=== PATIENT | female | born 1940 | race Caucasian/White ===

== ENCOUNTER 2019-05-15 06:41 | Inpatient (IN) ==
--- NOTE | 2019-05-03 08:15 | EKG Report ---
Test Performed on : 05/03/2019 07:39:29 AM Test Reason : PAT Blood Pressure : / mmHG Vent. Rate : 068 BPM Atrial Rate : 068 BPM P-R Int : 192 ms QRS Dur : 154 ms QT Int : 434 ms P-R-T Axes : 064 107 026 degrees QTc Int : 461 ms Normal sinus rhythm. Right bundle branch block Abnormal ECG No previous ECGs available Confirmed by Faith TARIQ, Jefferson Farrell ([id number]) on 05/04/2019 8:58:36 AM
[2019-05-03 08:26] LABS: URINE SOURCE CLEAN CATCH
[2019-05-03 08:43] LABS: BASO# 0.02 X1000 (0.0-0.2); BASO% 0.3 % (0.0-0.8); EOS# 0.09 X1000 (0.0-0.7); EOS% 1.4 % (0.0-10.0); HEMATOCRIT 39.9 % (37.0-47.0); HEMOGLOBIN 12.4 g/dL (12.0-16.0); LYMPH% 40.3 % (20.5-51.1); MCH 29.6 PG (27-31); MCHC 31.1 g/dL (33-37); MCV 95.2 FL (81-99); MONO# 0.76 X1000 (0.11-0.59); MONO% 12.2 % (1.7-9.3); MPV 9.5 FL (7.4-10.4); NEUT# 2.84 X1000 (1.4-6.5); NEUT% 45.8 % (42.2-75.2); PLT 235 X1000 (130-400); RBC 4.19 XMIL (4.2-5.4); RDW 13.7 % (11.5-14.5); WBC 6.21 X1000 (4.8-10.8)
[2019-05-03 08:45] LABS: BILIRUBIN URINE NEGATIVE (NEGATIVE); BLOOD URINE NEGATIVE (NEGATIVE); COLOR YELLOW; GLUCOSE URINE NEGATIVE (NEGATIVE); KETONE URINE NEGATIVE (NEGATIVE); LEUKOCYTES URINE NEGATIVE (NEGATIVE); NITRITE URINE NEGATIVE (NEGATIVE); PROTEIN URINE NEGATIVE (NEGATIVE); SP GRAVITY URINE 1.015; TURBIDITY URINE CLEAR (CLEAR); UR EPITHELIAL CELLS <10 /HPF (<10); URINE BACTERIA 3+ /HPF; URINE RBC <10 /HPF (<10); URINE WBC <10 /HPF (<10); UROBILINOGEN URINE NORMAL (NORMAL)
[2019-05-03 08:50] LABS: HEMOGLOBIN A1C 5.9 % (4.8-6.0); INR 0.98; PROTIME 13.1 Seconds (11.0-16.0)
[2019-05-03 08:51] LABS: PTT 24.7 Seconds (22.3-41.8)
[2019-05-03 09:03] LABS: ALBUMIN 4.3 g/dL (3.5-5.0); CALCIUM 9.9 mg/dL (8.8-10.2); CREATININE 1.4 mg/dL (0.5-0.9); POTASSIUM 4.1 mmol/L (3.5-5.1)
[2019-05-15] MEDS ORDERED: ROBINUL ONE (07:03)
[2019-05-15] MEDS ORDERED: DIPRIVAN 1% ONE (07:03)
[2019-05-15] MEDS ORDERED: XYLOCAINE-MPF 2% ONE (07:03)
[2019-05-15] MEDS ORDERED: VERSED ONE (07:03)
[2019-05-15] MEDS ORDERED: VANCOMYCIN ONE (07:22)
[2019-05-15] MEDS ORDERED: DURAMORPH ONE (07:22)
[2019-05-15] MEDS ORDERED: TORADOL ONE ×2 (07:22→08:33)
[2019-05-15] MEDS ORDERED: EXPAREL 1.3% ONE (07:24)
[2019-05-15] MEDS ORDERED: SODIUM CHLORIDE 0.9% ONE (07:24)
[2019-05-15] MEDS ORDERED: MARCAINE 0.25% PF ONE (07:24)
[2019-05-15] MEDS ORDERED: COLACE ONE (07:25)
[2019-05-15] MEDS ORDERED: REGLAN ONE (07:26)
[2019-05-15] MEDS ORDERED: PEPCID ONE (07:26)
[2019-05-15] MEDS ORDERED: LYRICA ONE (07:26)
[2019-05-15] MEDS ORDERED: KEFZOL 1 GM/D5W 1 GM/50 ML IVPB ONE (07:26)
[2019-05-15] MEDS ORDERED: CELEBREX ONE (07:26)
[2019-05-15] MEDS ORDERED: LR 1,000 ML ONE (07:26)
[2019-05-15] MEDS: CYKLOKAPRON 1,000 MG/NS 2,000 MG/200 ML IVPB ONE ×2 (08:30→09:29)
[2019-05-15] MEDS ORDERED: OFIRMEV 1000 MG/ISOTONIC SOLN 1,000 MG/100 ML BOTTLE ONE (08:33)
[2019-05-15] MEDS ORDERED: DECADRON ONE (08:33)
[2019-05-15 09:27] LABS: URINE SOURCE CATH
[2019-05-15 09:32] LABS: BILIRUBIN URINE NEGATIVE (NEGATIVE); BLOOD URINE NEGATIVE (NEGATIVE); COLOR YELLOW; GLUCOSE URINE NEGATIVE (NEGATIVE); KETONE URINE NEGATIVE (NEGATIVE); LEUKOCYTES URINE NEGATIVE (NEGATIVE); NITRITE URINE NEGATIVE (NEGATIVE); PH URINE 5.5; PROTEIN URINE NEGATIVE (NEGATIVE); SP GRAVITY URINE 1.008; TURBIDITY URINE CLEAR (CLEAR); UR EPITHELIAL CELLS <10 /HPF (<10); URINE BACTERIA NEGATIVE /HPF; URINE RBC <10 /HPF (<10); URINE WBC <10 /HPF (<10); UROBILINOGEN URINE NORMAL (NORMAL)
[2019-05-15] MEDS ORDERED: NS 1,000 ML ONE (10:29)
--- NOTE | 2019-05-15 10:51 | OPERATIVE NOTE ---
PROCEDURE DATE: 05/15/2019 PREOPERATIVE DIAGNOSIS: Left knee degenerative joint disease. POSTOPERATIVE DIAGNOSIS: Left knee degenerative joint disease. PROCEDURE PERFORMED: Left total knee arthroplasty using [facility], size 6 femoral component, size 5 tibial base plate, a 16 mm articular insert, and a 35 mm patellar component. SURGEON: Alen Boyle M.D. CLOTHES WRINGER: Neel Young. ANESTHESIA: Spinal. COMPLICATIONS: None. BLOOD LOSS: Minimal. TOURNIQUET TIME: One hour. DESCRIPTION OF PROCEDURE: The patient was brought to the operative suite and placed in the supine position. After successful administration of general anesthesia, a well-padded tourniquet was placed on the left proximal thigh. The left lower extremity was prepped and draped in the usual sterile fashion. Leg was exsanguinated. Tourniquet insufflated to 300 torr. A longitudinal incision was made, beginning at the superior pole of patella, and extended distally to tibia tuberosity, dissected sharply through skin and subcutaneous tissue, and then a medial arthrotomy was made, and the medial capsule was elevated off the medial tibial plateau. The ACL, PCL, medial meniscus, and lateral meniscus were excised. A drill was entered in the center of the distal femur. Intramedullary guide was placed. Distal cutting block was pinned into place. Distal cut was made with oscillating saw. Attention was directed to the tibia. A drill was entered in the center of the tibia. Intramedullary guide was placed. Alignment was checked with drop zaki, referencing off the anterior cortex of the tibia and the second ray of the foot, and taking 4 mm off the low side of the tibia, which in this case was medially. The tibial cutting block was pinned into place. The articular surface of the tibial plateau was removed with the oscillating saw. Extension gap was checked and balanced at 16 mm. Flexion gap was 25 mm to account for 9 mm of the posterior condyle of the femoral component. Once rotation was set properly by guide balancing, the knee was sized to a size 6. A size 6 femoral cutting block was pinned into place, and the anterior cuts, chamfer cuts, and posterior condylar cuts were made with the oscillating saw. Marginal osteophytes were removed with the rongeur. A box cutting block was pinned into place. Box cut was made with a box osteotome and oscillating saw. Posterior condylar osteophytes were removed with the curved osteotome and a rongeur. Attention was directed back to the tibia. The tibia was sized to a size 5. A size 5 guide was used for the fin punch. The tibial trial, femoral trial, and 16 mm articular insert placed and taken through range of motion, found to have excellent alignment, balancing, range of motion. Attention was directed to the patella, and 9 mm of the articular surface of the patella was removed with the oscillating saw. The patella was sized to a size 35. A size 35 guide was used to drill peg holes. The lateral facet was chamfered 30 to 45 degrees. Patella trial was placed, taken through range of motion, and found to have excellent patella tracking. All trials were then removed. The knee was copiously irrigated and dried, being certain all bone debris was removed. The tibial component, femoral component, and patellar component were cemented into place, excess cement being removed with a Bushnell. Once the cement had hardened, excess cement was again removed with an osteotome. The knee was again copiously irrigated and dried, being certain all bone and cement debris were removed. The trial articular insert was removed. The knee was copiously infiltrated with Exparel, including the posterior capsule, anterior capsule, medial and lateral collateral ligaments, intermuscular and subcutaneous tissue. The tourniquet was deflated. Hemostasis was obtained with electrocautery. The definitive articular insert was then locked into place. The knee was again copiously irrigated with normal saline containing irrigant and Vashe irrigation. The medial arthrotomy was closed with 0 V-Loc. Skin edge was approximated with 2-0 Vicryl. Skin was reapproximated with 2-0 Vicryl, and then closed with Prineo. A sterile dressing was applied. The patient tolerated the procedure well without complications. At the end of the procedure, all counts were correct x2. The patient was transferred to the recovery room in stable condition. cc: MD VITO Naidu
[2019-05-15] MEDS: NS 1,000 ML IV SCH (11:30)
[2019-05-15] MEDS ORDERED: ZOFRAN IV PRN (11:30)
[2019-05-15] MEDS ORDERED: MILK OF MAGNESIA PO PRN (11:30)
[2019-05-15] MEDS ORDERED: ZOFRAN ODT PO PRN (11:30)
[2019-05-15] MEDS: ULTRAM PO SCH ×2 (11:30→18:55)
[2019-05-15] MEDS ORDERED: OXY IR PO PRN ×2 (11:30)
[2019-05-15] MEDS: TYLENOL PO SCH ×2 (14:31→20:39)
[2019-05-15] MEDS: KEFZOL 1 GM/D5W 1 GM/50 ML IVPB IV SCH (16:30)
[2019-05-15] MEDS: PRAVACHOL PO SCH (20:39)
[2019-05-15] MEDS: CELEBREX PO SCH (20:39)
[2019-05-15] MEDS: LYRICA PO SCH (20:40)
[2019-05-15] MEDS: COLACE PO SCH (20:40)
[2019-05-15] MEDS: PERIDEX MT SCH (20:40)
[2019-05-16] MEDS: KEFZOL 1 GM/D5W 1 GM/50 ML IVPB IV SCH (00:31)
[2019-05-16] MEDS: NS 1,000 ML IV SCH ×2 (00:32→18:06)
[2019-05-16] MEDS: ULTRAM PO SCH ×4 (00:35→22:53)
[2019-05-16] MEDS: TYLENOL PO SCH ×4 (06:30→22:54)
[2019-05-16 06:37] LABS: HEMOGLOBIN 10.5 g/dL (12.0-16.0)
[2019-05-16 07:07] LABS: CALCIUM 8.5 mg/dL (8.8-10.2); CREATININE 1.8 mg/dL (0.5-0.9); POTASSIUM 3.8 mmol/L (3.5-5.1)
[2019-05-16] MEDS ORDERED: SALINE LOCK IV FLUID XX ONE (08:32)
[2019-05-16] MEDS ORDERED: HYDROCHLOROTHIAZIDE PO SCH (09:00)
[2019-05-16] MEDS ORDERED: TOPROL XL PO SCH (09:00)
[2019-05-16] MEDS ORDERED: DECADRON IV ONE (09:00)
--- NOTE | 2019-05-16 12:21 | ORTHOPAEDICS PROGRESS NOTE ---
DATE: 05/16/2019 SUBJECTIVE: Hugo Yuan is an 79-year-old female postop day 1 from a left total knee arthroplasty. She has no complaints. She is alert and oriented. OBJECTIVE: She is a well-developed, well-nourished female. Her leg is stable. She is able to extend and flex her knee. She has begin working with physical therapy. Her hemoglobin is 10.5, her hematocrit is 31.6. ASSESSMENT: Stable left total knee arthroplasty. PLAN: Plan on discharging her to rehab later in the week. cc: Alen Boyle MD
[2019-05-16] MEDS ORDERED: NS 1,000 ML IV SCH (14:00)
[2019-05-16] MEDS: CELEBREX PO SCH ×2 (15:32→22:54)
[2019-05-16] MEDS: ASPIRIN PO SCH (15:32)
[2019-05-16] MEDS: COLACE PO SCH ×2 (15:33→22:55)
[2019-05-16] MEDS: LYRICA PO SCH (15:34)
[2019-05-16] MEDS: NIASPAN PO SCH (15:35)
[2019-05-16] MEDS: PEPCID PO SCH (15:35)
[2019-05-16] MEDS: PERIDEX MT SCH ×2 (15:36→22:55)
[2019-05-16] MEDS: COZAAR PO SCH (18:00)
--- NOTE | 2019-05-16 20:05 | CONSULTATION ---
DATE OF CONSULTATION: 05/16/2019 ATTENDING PHYSICIAN: Dr. Boyle. REASON FOR CONSULTATION: Medical management and evaluation of hyponatremia. HISTORY OF PRESENT ILLNESS: Ms. Yuan is an 79-year-old, white female, with osteoarthritis of both knees, who underwent left total knee arthroplasty yesterday by Dr. Boyle. Laboratory this morning revealed hemoglobin 10.5, hematocrit 30.1. Sodium was 126, potassium 3.8, BUN 24, creatinine 1.8, glucose 143, calcium 8.5. Urinalysis was normal. Blood type was A positive. She is doing well postoperatively with minimal pain. She was able to get up this morning with mild-to- moderate pain. PAST MEDICAL HISTORY: No history of recent hospitalization or surgery. HOME MEDICINES: Include Losartan 100 mg daily, hydrochlorothiazide 25 mg one daily, metoprolol 50 mg every morning, niacin 500 mg daily, pravastatin 20 mg at bedtime, Lyrica 75 mg b.i.d. ALLERGIES: None known. REVIEW OF SYSTEMS: Unremarkable, except for hypertension and osteoarthritis. She had an evaluation by Dr. Benavides with GXT and echocardiogram earlier this year, both studies being essentially normal. PHYSICAL EXAMINATION: Mental status is normal.HEENT: She wears glasses. Pupils are equal, round, and reactive to light. Pharynx benign. Neck: Supple with no mass or lymphadenopathy. Heart: Regular in rate and rhythm with no murmur, rub, or gallop. Lungs: Clear with no rales or rhonchi. Abdomen: Soft with no mass, tenderness, or organomegaly. Extremities: Knee immobilizer on the left with minimal tenderness and no ankle edema. LABORATORY DATA: Sodium was 126, as above. IMPRESSION: 1. Anemia postoperatively with hematocrit 30. 2. Hyponatremia. 3. Hypertension. 4. Osteoarthritis of both knees. 5. Hypercholesterolemia. PLAN: Discontinue hydrochlorothiazide and place on 75 mL/h sodium chloride drip. Lab will be rechecked tomorrow morning. Tentative plans are for her to go to rehab on . cc: MD Alen Tineo MD
[2019-05-16] MEDS: PRAVACHOL PO SCH (22:55)
[2019-05-17] MEDS: LYRICA PO SCH ×2 (01:05→09:35)
[2019-05-17] MEDS: ULTRAM PO SCH ×2 (05:01→09:45)
[2019-05-17] MEDS: TYLENOL PO SCH ×3 (05:02→15:17)
--- NOTE | 2019-05-17 07:53 | PROGRESS NOTE ---
DATE: 05/17/2019 VITAL SIGNS: Temperature 98.1 degrees, heart rate 63, respiration 18, blood pressure 170/63, O2 saturation on room air 95%. The patient was confused last night and this morning. She did not allow lab to draw her blood. Chest is clear. She continues to be confused and said that she would only allow her blood to be drawn at my office and that was due in June. PLAN: Family was called and will assist in helping her cooperate. She will have a BMP done this morning. Jailene delcid is added. cc: MD Alen Tineo MD
[2019-05-17] MEDS: NS 1,000 ML IV SCH (07:55)
--- NOTE | 2019-05-17 08:31 | Diag Imaging Result Doc PS360 ---
EXAM: CHEST-1 VIEW 05/17/2019 HISTORY: rehab TECHNIQUE: AP portable upright at 0820 COMMENT: There is a large hiatal hernia. There is blunting of the left costophrenic angle. There are no previous studies. The heart size is enlarged. There are sternotomy wires. IMPRESSION: Fibrosis versus atelectasis in the left costophrenic angle region. Hiatal hernia. Cardiomegaly. Electronically signed by Prieto Fam 05/17/2019 8:28 AM
[2019-05-17] MEDS: CELEBREX PO SCH (09:30)
[2019-05-17] MEDS: ASPIRIN PO SCH (09:30)
[2019-05-17] MEDS: COLACE PO SCH ×2 (09:31→21:39)
[2019-05-17] MEDS: PERIDEX MT SCH ×2 (09:32→21:39)
[2019-05-17] MEDS: COZAAR PO SCH (09:33)
[2019-05-17] MEDS: NIASPAN PO SCH (09:34)
[2019-05-17] MEDS: PEPCID PO SCH (09:36)
[2019-05-17] MEDS: TOPROL XL PO SCH (09:36)
[2019-05-17] MEDS: GEODON PO SCH ×2 (09:44→17:07)
[2019-05-17 10:07] LABS: HEMATOCRIT 32.1 % (37.0-47.0); HEMOGLOBIN 10.6 g/dL (12.0-16.0)
[2019-05-17] MEDS ORDERED: NS 500 ML IV ONE (10:35)
[2019-05-17 10:40] LABS: CALCIUM 8.8 mg/dL (8.8-10.2); CREATININE 1.6 mg/dL (0.5-0.9); POTASSIUM 3.6 mmol/L (3.5-5.1)
[2019-05-17 15:05] LABS: URINE SOURCE CLEAN CATCH
[2019-05-17 15:09] LABS: BILIRUBIN URINE NEGATIVE (NEGATIVE); BLOOD URINE NEGATIVE (NEGATIVE); COLOR YELLOW; GLUCOSE URINE NEGATIVE (NEGATIVE); KETONE URINE NEGATIVE (NEGATIVE); LEUKOCYTES URINE MODERATE (NEGATIVE); NITRITE URINE NEGATIVE (NEGATIVE); PROTEIN URINE NEGATIVE (NEGATIVE); TURBIDITY URINE CLEAR (CLEAR); UR EPITHELIAL CELLS <10 /HPF (<10); URINE BACTERIA NEGATIVE /HPF; URINE RBC <10 /HPF (<10); URINE WBC <10 /HPF (<10); UROBILINOGEN URINE NORMAL (NORMAL)
--- NOTE | 2019-05-17 17:40 | ORTHOPAEDICS PROGRESS NOTE ---
DATE: 05/17/2019 SUBJECTIVE: Hugo Yuan is an 79-year-old female. She has been somewhat confused, but is alert and is doing well as far as her knee is concerned. OBJECTIVE: She is a well-developed, well-nourished female. She is cooperative with exam. Her knee wound is clean, dry, and intact. She has good range of motion. She has been ambulating well. LABORATORY DATA: Her creatinine has gone up from 1.4 to 1.8 yesterday, and also she had a low sodium yesterday. The other labs from today are pending. IMPRESSION: Left total knee arthroplasty with hyponatremia and possible acute renal insufficiency. PLAN: I am going to discontinue all of her pain medications to hopefully help with the confusion, as well as discontinue the Celebrex, which hopefully will help with her kidney function, and give her a 500 mL bolus of normal saline and then place her on 75 mL/h of normal saline. I will recheck her lab work that is pending. Hopefully, if she is better tomorrow, she can possibly go to rehab. cc: Alen Boyle MD
[2019-05-17] MEDS: LEVAQUIN PO SCH (18:06)
[2019-05-17] MEDS: NACL 3% 500 ML IV SCH (18:07)
[2019-05-17] MEDS: PRAVACHOL PO SCH (21:38)
[2019-05-18] MEDS: TYLENOL PO SCH ×3 (03:44→08:32)
[2019-05-18] MEDS: NACL 3% 500 ML IV SCH (05:49)
[2019-05-18 06:35] LABS: HEMATOCRIT 28.9 % (37.0-47.0); HEMOGLOBIN 9.5 g/dL (12.0-16.0)
[2019-05-18 07:25] LABS: CALCIUM 8.2 mg/dL (8.8-10.2); CREATININE 1.6 mg/dL (0.5-0.9); POTASSIUM 3.9 mmol/L (3.5-5.1)
[2019-05-18] MEDS ORDERED: SALINE LOCK IV FLUID XX ONE (07:28)
[2019-05-18] MEDS: PERIDEX MT SCH (08:31)
[2019-05-18] MEDS: TOPROL XL PO SCH (08:31)
[2019-05-18] MEDS: LEVAQUIN PO SCH (08:31)
[2019-05-18] MEDS: NIASPAN PO SCH (08:32)
[2019-05-18] MEDS: COLACE PO SCH (08:32)
[2019-05-18] MEDS: ASPIRIN PO SCH (08:32)
[2019-05-18] MEDS: PEPCID PO SCH (08:32)
[2019-05-18] MEDS: COZAAR PO SCH (08:32)
--- NOTE | 2019-05-18 08:51 | PROGRESS NOTE ---
DATE: 05/18/2019 VITAL SIGNS: Temperature 97.8 degrees, heart rate 72, respirations 17, and blood pressure 123/57. O2 saturation on room air 97%. SUBJECTIVE: Pain is minimal. Sodium level is pending. She is more alert and less confused. Urinalysis yesterday revealed moderate WBCs. She was given Levaquin. This will need to be continued for another 5 days at rehab. Delirium related to hyponatremia is improved. PLAN: Change IV to heparin lock. Continue Levaquin. Rehab placement when okay with Dr. Boyle. cc: MD Alen Tineo MD
--- NOTE | 2019-05-18 09:10 | DISCHARGE SUMMARY ---
ADMISSION DATE: 05/15/2019 DISCHARGE DATE: 05/18/2019 DISCHARGE DIAGNOSES: 1. Left knee degenerative joint disease, status post total knee arthroplasty. 2. Acute mental status changes, resolved. 3. Mild acute renal failure, improving. 4. Hyponatremia, which has resolved. DISCHARGE MEDICATIONS: See discharge medication list. DISPOSITION: The patient was discharged to rehab with instructions for total knee arthroplasty protocol and history of heart failure protocol. Instructed to return for any signs or symptoms of infection or deep venous thrombosis. Instructed to return to see Dr. Boyle next . HOSPITAL COURSE: On the day of admission, the patient underwent a left total knee arthroplasty. Her postop course was complicated by mental status changes, hyponatremia, and mild acute renal insufficiency with a creatinine of 1.8. All were cleared by discontinuing psychoactive medications and increasing her fluids of normal saline. Also, Dr. Saul gave her some 3% saline for her sodium. We used this judiciously with her history of heart failure. At discharge, she is afebrile, tolerating a regular diet, ambulating well with physical therapy. Her wound is clean, dry, and intact without sign of infection. She is discharged to rehab in stable condition with instructions to follow up as described above. cc: Alen Boyle MD
[2019-05-18 12:28] VITALS: BP 122/47
== END 2019-05-18 12:53 | DRG 470 ==
LOC: SURHOLD 06:41 → 4N 08:48
PROVIDERS: ADMIT Orthopaedic Surgery; ATTEND Orthopaedic Surgery